=== PATIENT | male | born 1990 | race Asian ===

== ENCOUNTER 2017-07-10 09:20 | Day surgery (SDC) | payer OTHER ==
[~2017-07-10] VITALS: Ht 175.3 cm; Wt 79.4 kg
[~2017-07-10 09:20] MED LIST: NO MEDS
[2017-07-10] MEDS ORDERED: fentaNYL 100 MCG/2 ML INJECTION (J3010) As Ordered ONE (09:30)
[2017-07-10] MEDS ORDERED: PROPOFOL 200 MG/20 ML VIAL As Ordered ONE (09:30)
[2017-07-10] MEDS ORDERED: MIDAZOLAM INJ 2 MG/2 ML VIAL (J2250) As Ordered ONE (09:30)
[2017-07-10] MEDS ORDERED: LIDOCAINE 2% INJ 100 MG/5 ML SDV (FOR ANES.) As Ordered ONE (09:30)
[2017-07-10] MEDS ORDERED: LR 1,000 ML IV SCH (09:45)
[2017-07-10] MEDS ORDERED: LIDOCAINE 1% SDV 5 ML VIAL SC ONE (09:45)
[2017-07-10] MEDS ORDERED: dexameTHASONE 4 MG/ML 1ML VIAL (J1100) As Ordered ONE (10:02)
[2017-07-10] MEDS ORDERED: BUPIVACAINE HCL 0.5% 30 ML VIAL As Ordered ONE (10:02)
[2017-07-10] MEDS ORDERED: LIDOCAINE 2% MDV 20 ML VIAL As Ordered ONE (10:02)
[2017-07-10] MEDS ORDERED: NEOSPORIN GU IRRIG 20 ML VIAL As Ordered ONE (10:02)
[2017-07-10] MEDS ORDERED: BACITRACIN PWD 50,000 UNITS VIAL As Ordered ONE (10:02)
[2017-07-10] MEDS ORDERED: ONDANSETRON 4MG/2ML VIAL (J2405) As Ordered ONE (12:39)
[2017-07-10] MEDS ORDERED: KETOROLAC 60 MG/2 ML VIAL (J1885) As Ordered ONE (12:39)
[2017-07-10 14:25] VITALS: BP 134/81
--- NOTE | 2017-07-10 15:08 | REP ---
RIGHT FOOT, FOUR VIEWS: HISTORY: Postoperative. The patient is status post osteotomy of the first metatarsal. A metal screw is present. The patient is status post osteotomy of the 5th proximal phalange. There is no dislocation. IMPRESSION: The patient is status post osteotomy of the first metatarsal and 5th proximal phalange. There is anatomic alignment. Signed by Benson Vargas MD 07/10/2017 03:10 P
--- NOTE | 2017-07-11 07:08 | RO ---
DATE OF PROCEDURE: 07/10/2017 PREOPERATIVE DIAGNOSES: Hallux valgus metatarsus primus varus deformity, right foot. Hammertoe deformity 5th toe right foot. POSTOPERATIVE DIAGNOSES: Hallux valgus metatarsus primus varus deformity, right foot. Hammertoe deformity 5th toe right foot. PROCEDURE: 1. Uri bunionectomy with internal screw fixation 3.0 x 24 mm times one, right foot. 2. Proximal interphalangeal joint arthroplasty 5th toe, right foot. SURGEON: Sarath French DPM LENS SILVERER: None. ANESTHESIA: Local monitored anesthesia care (MAC). IRRIGATION: Dilute bacitracin, neomycin and polymyxin B solution. HEMOSTASIS: Ankle pneumatic tourniquet 200 mmHg, 35 minutes, right ankle. HARDWARE UTILIZED: Shetty DART-FIRE 3.0 x 24 mm compression screw, cannulated. DESCRIPTION OF OPERATION: On 07/10/2017, this 27-year-old male was taken from his hospital room to the operating room and placed on the operating room table in supine position. Following the induction of IV sedation and local and regional anesthesia, the right lower extremity was prepped and draped in the usual aseptic manner. The right lower extremity was elevated 45 degrees from the horizontal plane for the purpose of preoperative exsanguination of the limb. During this time period, an ankle pneumatic tourniquet was applied just proximal to the medial and lateral malleolus well padded site. The further exsanguinate the limb, a Jayjay's Esmarch bandage was placed circumferentially extending from the digits to the distal edge of the ankle pneumatic tourniquet and rapidly inflated to 200 mmHg for the purpose of intraoperative hemostasis. The Jayjay's Esmarch bandage was removed and the right lower extremity was returned to the operating table, sterile draping was completed, and the following procedure was performed: URI BUNIONECTOMY WITH INTERNAL SCREW FIXATION 3.0 x 24 MM TIMES ONE RIGHT FOOT: Attention was directed to the patient's right foot where there was noted to be a hallux valgus deformity. At this time, a 5 cm incision was placed over the first metatarsal phalangeal joint medial to the extensor tendon. The incision was deepened through subcutaneous tissues and all coursing venous tributaries were identified, underscored, clamped, cut, ligated, and electrocoagulated as necessary. Dissection was carried down in the same plane and all vital neurovascular structures were identified, mobilized and retracted medially and laterally. A linear capsulotomy was then performed in the same plane as the original skin incision and the capsular and periosteal structures were then dissected free in one continuous layer dorsally, medially and laterally, thus creating a capsular and periosteal type envelope. This delivered into view the hypertrophied medial eminence of the first metatarsal which was osteotomized from distal to proximal through and through and exiting medial to the sesamoidal groove. This was extirpated from the wound. Attention was then directed into the first inner metatarsal space were dissection was carried down to the level of the conjoin tendon, which was sharply dissected free from the fibular sesamoid. Attention was directed to the medial surface of the first metatarsal where a V-shaped osteotomy was performed with a long plantar and short dorsal wing. Upon creation of this osteotomy, the capital fragment was transposed approximately 40% of the width of the shaft of the first metatarsal and fixated with a 3.0 mm x 24 mm cannulated compression screw and screwed in a lag fashion. The screw did not penetrate the inferior cartilage on direct visualization. The redundant cortical spike was then osteotomized from dorsal to plantar through and through and the medial surface rasped to a smooth contour with a handheld rasp. The wound was flushed with copious amounts of dilute bacitracin, neomycin, and polymyxin B solution. Attention was directed towards closure where the capsular structures were coapted and maintained utilizing #2-0 Monocryl in a simple interrupted type fashion. The subcutaneous tissues were coapted and maintained utilizing #5-0 Monocryl in a simple interrupted type fashion. The skin incision was coapted and maintained utilizing #5-0 Monocryl in a continuous subcuticular type fashion and this was additionally reinforced with Steri-Strips. Attention was directed to the patient's 5th toe where the following procedure was performed: PROXIMAL INTERPHALANGEAL JOINT ARTHROPLASTY 5TH TOE, RIGHT FOOT: Attention was directed to the patients 5th toe where there was noted to be a hammertoe deformity. At this time, a 2 cm incision was placed over the proximal interphalangeal joint. The incision was deepened through subcutaneous tissues and coursing venous tributaries were identified, clamped, cut, ligated and electrocoagulated as necessary. A transverse tenotomy and capsulotomy was performed at the level of the proximal interphalangeal joint. The medial, lateral and collateral ligaments were sharply dissected free from the head of the proximal phalanx. Utilizing a power saw, an osteotomy was performed through the anatomical neck of the proximal phalanx from dorsal to plantar through and through and this was extirpated from the wound. The wound was flushed with copious amounts of diluted bacitracin, neomycin, and polymyxin B solution. Utilizing a #4-0 nylon braided loop suture, a four stranded core repair was performed at the extensor tendon in a Cruz type repair. The skin was coapted and maintained with #4-0 Prolene in a simple interrupted and horizontal mattress type fashion. Following the completion of the surgical procedure, 4 mg of dexamethasone sodium phosphate was instilled proximal to the surgical site. Attention was then directed towards bandaging where a sterile compressive bandage was applied consisting of Adaptic, 4x4s, 4x4 splints, Nori, Kerlix, and Coban. The ankle pneumatic tourniquet was rapidly deflated and instantaneous capillary filling time was noted in digits 1-5 of the patient's right foot. The patient apparently having tolerated the surgical procedure well was taken from the OR to the recovery room with vital signs stable and the patient afebrile for further monitoring by the anesthesia department. All surgical specimens removed during the operative procedure were sent to pathology for gross and microscopic examination. Postoperative instructions will be given upon discharge.
== END 2017-07-10 14:47 | disposition home or self-care (01) ==
LOC: M SDC 09:20
PROVIDERS: ATTEND Podiatrist
DX: M20.11 Hallux valgus (acquired), right foot (principal); M20.41 Other hammer toe(s) (acquired), right foot
CPT/HCPCS: 28285; 28296; 73630; 88300; C1776; J0690; J1100; J1885; J2250; J2405; J3010

== ENCOUNTER 2017-12-20 05:58 | Day surgery (SDC) | payer OTHER ==
[2017-12-20] MEDS ORDERED: PROPOFOL 200 MG/20 ML VIAL As Ordered ×3 (06:04→06:07)
[2017-12-20] MEDS ORDERED: LIDOCAINE 2% INJ 100 MG/5 ML SDV (FOR ANES.) As Ordered (06:05)
[2017-12-20] MEDS: LR 1,000 ML IV (06:15)
[2017-12-20] MEDS: BACITRACIN PWD 50,000 UNITS VIAL As Ordered (08:02)
[2017-12-20] MEDS: BUPIVACAINE HCL 0.5% 30 ML VIAL As Ordered (08:03)
[2017-12-20] MEDS ORDERED: fentaNYL 100 MCG/2 ML INJECTION (J3010) As Ordered (08:03)
[2017-12-20] MEDS: NEOSPORIN GU IRRIG 20 ML VIAL As Ordered (08:03)
[2017-12-20] MEDS ORDERED: MIDAZOLAM INJ 2 MG/2 ML VIAL (J2250) As Ordered (08:03)
[2017-12-20] MEDS: LIDOCAINE 2% MDV 20 ML VIAL As Ordered (08:03)
[2017-12-20] MEDS ORDERED: KETOROLAC 60 MG/2 ML VIAL (J1885) As Ordered (08:19)
[2017-12-20] MEDS: dexameTHASONE 4 MG/ML 1ML VIAL (J1100) As Ordered (08:25)
== END 2017-12-20 10:00 | disposition home or self-care (01) ==
LOC: M SDC 05:58
DX: M20.12 Hallux valgus (acquired), left foot (principal); M79.672 Pain in left foot
CPT/HCPCS: 28296